=== PATIENT | female | born 2000 | race Caucasian/White ===

== ENCOUNTER 2025-06-11 15:36 | Emergency (ER) | payer OTHER, SELFPAY ==
--- NOTE | ~2025-06-11 | CT_ITS ---
CLINICAL HISTORY: Abdominal Pain CT abdomen and pelvis with contrast Comparison: None provided Findings: The lung bases are clear. The gallbladder and solid organs are within normal limits. No renal stones. No bowel obstruction, pneumoperitoneum, or pneumatosis. Mesenteric vessels are patent. Appendix not identified. Uterus and ovaries unremarkable. The bones are intact. IMPRESSION: No acute findings. This document has been electronically signed by: Arias Peace MD on 06/11/2025 21:30:30
[2025-06-11 16:06] VITALS: BP 110/71; PULSE 92; RESP 18; TEMP 36.7; O2SAT 98; BMI 22.7
--- NOTE | 2025-06-11 16:08 | ECG_ITS ---
Test Reason : ABD PAIN Blood Pressure : */* mmHG Vent. Rate : 98 BPM Atrial Rate : 98 BPM P-R Int : 142 ms QRS Dur : 72 ms QT Int : 358 ms P-R-T Axes : 84 88 -9 degrees QTcB Int : 457 ms Normal sinus rhythm Abnormal QRS-T angle, consider primary T wave abnormality Abnormal ECG No previous ECGs available Referred By: Luis Finley Electronically Signed By: EKTA WAGNER MD
--- NOTE | 2025-06-11 16:15 | ED_ITS ---
HPI - General Adult General Chief complaint: Abdominal Pain Stated complaint: abd pain Time Seen by Provider: 06/11/25 18:16 History of Present Illness ED Provider: Mindi Cobb NP HPI narrative: 24-year-old female medical history significant for type 1 diabetes, mood disorder, presents to the ED for evaluation reporting generalized abdominal pain ongoing for 1-1/2 weeks. Patient reports that the pain can be worse after eating, her boyfriend reports the pain appears to be more severe in the right upper quadrant. She reports the pain is constant 24/7, though has waves of pain. The waves of pain or with associated nausea, without vomiting. No diarrhea, though she reports some constipation. She has use MiraLax [id number] as well as stool softeners without much relief. She denies any fever, chills subjectively. No chest pain or pressure, shortness of breath. Does endorse abnormal vaginal spotting, but reports that she has inner-arm control (left) which occasionally causes this spotting. However the spotting has been more prolonged. Denies chance of . Denies any abnormal vaginal discharge. No dysuria, hematuria, urgency or frequency. No flank pain. Reports occasionally the pain in the abdomen radiates to the right back. Related Data Previous Rx's ?Medication ?Instructions ?Recorded capsaicin 0.025 % topical cream 1 appl topical BID 7 d ays #120 06/11/25 grams ondansetron 4 mg disintegrating 4 mg PO Q8H PRN nausea and 06/11/25 tablet vomiting #14 tabs Allergies Allergy/AdvReac Type Severity Reaction Status Date / Time No Known Allergies Allergy Verified 06/11/25 16:09 Review of Systems 2 Review of Systems: ROS is otherwise negative unless mentioned in HPI. [facility] Social History Social History Alcohol intake: never Physical Exam ED Exam Exam: Nursing notes and vital signs reviewed. Constitutional: Well-appearing, NAD. Alert. Oriented X3. Eyes: EOMI. ENT: Pharynx normal. Neck: Normal inspection. Neck supple. CVS: Normal heart rate and rhythm. Pulses normal. Respiratory: No respiratory distress. Breath sounds normal. Abdomen: Soft and nontender, nondistended. +Bsx4. No CVA tenderness bilaterally. Skin: Skin warm and dry. Normal skin color. Extremities: No lower extremity edema. Neuro: Oriented X 3. No motor deficit. Vital Signs: Vital Signs - 24 hr 06/11/25 16:06 06/11/25 19:02 Temperature 98.1 F 98.1 F Pulse Rate 92 79 Respiratory Rate 18 16 Blood Pressure 110/71 107/70 Pulse Oximetry 98 Oxygen Delivery Method Room Air Room Air Oxygen Flow Rate 99 BMI result Body Mass Index 22.7 Course Course Course Narrative: REINALDO; 24 year female presents to ED for abdominal pain generalized with nausea vomiting. Patient describes pain that is quite hot. Labs ordered. Medications Administered Discontinued Medications Generic Name Dose Route Start Last Admin Trade Name Freq PRN Reason Stop Dose Admin Sodium Chloride 1,000 mls @ 999 mls/hr 06/11/25 18:28 06/11/25 19:57 Ns IV 06/11/25 19:28 Infused .Q1H1M ONE Infusion Iohexol 100 ml 06/11/25 20:44 06/11/25 20:47 Iohexol 350 Mg/Ml 100 Ml Infus..Btl IV 06/11/25 20:45 85 ml ONCE ONE Administration Ketorolac Tromethamine 15 mg 06/11/25 19:36 06/11/25 19:57 Ketorolac Tromethamine 15 Mg/Ml Vial IVPUSH 06/11/25 19:37 15 mg ONCE ONE Administration Ondansetron HCl 4 mg 06/11/25 18:28 06/11/25 18:47 Ondansetron Hcl 4 Mg/2 Ml Vial IVPUSH 06/11/25 18:29 4 mg ONCE ONE Administration Medical Decision Making Medical Decision Making [facility] Narrative: 6:30 PM 06/11/2025 (Mindi Cobb NP): Upon my assessment, she does overall appear well. She answers questions appropriately. Her boyfriend is at bedside, and further reports that she has been experiencing right upper quadrant abdominal pain with intermittent radiation to the right back, worse after meals ongoing for about 1 week. She denies any urinary complaints, and reports that she has had several UTIs in the past, which led to the diagnosis of her diabetes type 1. She has had controlled sugars at home. No fever or chills. Some intermittent vaginal spotting, reports this is more prolonged comparison to baseline given her Nexplanon; Reports bleeding can be worse in times of stress. Upon review of her lab work, her LFTs, lipase, bilirubin are normal. She has no leukocytosis. Overall very reassuring. We will add on serology for COVID, flu, RSV, as well as urinalysis and urine prior to proceeding with CT imaging of the abdomen/pelvis. Will plan to administer Toradol injection after negative hCG, and currently administer fluid bolus, antiemetic. 11:30 PM -- the patient's lab work was overall reassuring. Negative viral panel. Urinalysis showed that she was spilling glucose, without evidence of DKA. CT scan shows no acute intra-abdominal or intrapelvic abnormalities. She was given antiemetic, Toradol, and a fluid bolus with good effect. She reported improvement after these medications, though upon eating in the ED reported recurrent pain. I do believe part of the pain may be due to underlying hunger, as she has not had much to eat today. I have recommended that she use Tylenol, ibuprofen for pain, and follow up with Gastroenterology outpatient, whom I have listed on her paperwork for her convenience. She does report a history of cyclical vomiting syndrome, and therefore I have prescribed her capsaicin cream that can be used topically for the abdominal pain. I have provided return precautions to the ED, she is agreeable to plan of care. Differential Diagnosis Differential Diagnoses: The differential diagnosis associated with the presentation includes Cystitis, pyelonephritis, viral pathology, constipation, cholecystitis, cholelithiasis Admission/Observation Consideration of admission/observation: Escalation of care including admission/observation considered (Not indicated) Lab Data MDM Lab Attestation statement: I reviewed the patient's lab results. (Overall reassuring) 06/11/25 16:27 06/11/25 16:27 Labs: Lab Results 06/11/25 06/11/25 06/11/25 Range/Units 16:27 19:10 21:51 WBC 9.3 (4.8-10.8) X10*3/uL RBC 4.50 (4.20-5.50) X10*6/uL Hgb 13.1 (12.0-16.0) g/dl Hct 37.6 (37.0-47.0) % MCV 83.6 (80.0-98.0) fL MCH 29.1 (27.0-33.0) pg MCHC 34.8 (31.0-35.0) g/dl RDW 11.9 (11.0-16.0) % Plt Count 182 (160-400) X10*3/uL MPV 8.9 L (9.4-12.3) fL Immature Gran % (Auto) 0.3 (0.0-0.4) % Neut % (Auto) 76.5 H (45-73) % Lymph % (Auto) 12.8 L (20-40) % [place] % (Auto) 5.6 (2-11) % Eos % (Auto) 4.1 H (0-4) % Baso % (Auto) 0.7 (0-2) % Lymph # (Auto) 1.2 (1.2-4.9) X10*3/uL [place] # (Auto) 0.5 (0.1-1.2) X10*3/uL Eos # (Auto) 0.4 (0.0-0.4) X10*3/uL Baso # (Auto) 0.1 (0.0-0.2) X10*3/uL Abs Immat Gran (auto) 0.03 (0.00-0.03) X10*3/uL Absolute Neuts (auto) 7.1 (2.0-8.3) x10*3/uL Absolute Nucleated RBC 0.000 (0.0-0.012) X10*3/uL Nucleated RBC % (auto) 0.0 (0.0-0.2) /100WBC PT 12.8 (11.2-13.5) SEC INR 1.0 (0.9-1.1) APTT 32.0 (26.7-34.1) SEC Sodium 138 (135-145) mmol/L Potassium 3.6 (3.3-5.1) mmol/L Chloride 105 (96-108) mmol/L Carbon Dioxide 26 (22-29) mmol/L Anion Gap 11 L (12-20) BUN 9 (9-16) mg/dL Creatinine 0.78 (0.5-1.4) mg/dL Estim Creat Clear Calc 96.0 Estimated GFR > 60 Random Glucose 194 H (60-115) mg/dL Calcium 9.0 (8.4-10.2) mg/dL Total Bilirubin 0.7 (0.0-1.0) mg/dL AST 21 (5-31) U/L ALT 17 (0-31) U/L Alkaline Phosphatase 57 (39-117) U/L Troponin I High Sens < 2.7 (<3.5-17.0) ng/L Total Protein 6.9 (6.5-8.0) g/dL Albumin 4.7 (3.5-5.0) g/dL Lipase 17 (8-78) U/L Beta-Hydroxybutyrate 0.32 H (0.02-0.27) mmol/L Beta HCG, Quant < 2 mIU/mL Urine Color Yellow Urine Appearance Cloudy Urine pH 6.5 (5.0-9.0) Ur Specific [place] 1.015 (1.005-1.025) Urine Protein Negative (Neg-Trace) mg/dL Urine Glucose (UA) >=1000 H (Negative) mg/dL Urine Ketones Negative (Negative) mg/dL Urine Blood Small (1+) H (Negative) Urine Nitrite Negative (Negative) Ur Leukocyte Esterase Negative (Negative) Urine RBC 0-2 (0-2) /HPF Urine WBC 0-5 (0-5) /HPF Ur Squamous Epith Cells 0-2 (0-2) /HPF Urine Bacteria None Seen (None Seen) Hyaline Casts 0-2 (0-2) /LPF Urine Test NEGATIVE (NEGATIVE) Influenza Type A (PCR) NEGATIVE (Negative) Influenza Type B (PCR) NEGATIVE (Negative) RSV RNA Qual (PCR) NEGATIVE (Negative) SARS-CoV-2 RNA (RT-PCR) NEGATIVE (Negative) Independent Interpretation I performed an independent interpretation of an: EKG Interpretation: Rate: 98 Rhythm: NSR Johnston: 84/88/-9 Normal P waves. Normal ZOIE. Normal QRS complex. ST T wave : no dep, elevation qTC: 457 prior studies: none available The study has been interpreted contemporaneously by me. Radiology Impression Discussion of test interpretation with radiology: I have reviewed the radiologist's reading. Radiologist Impression: CT Abdomen/Pelvis W: IMPRESSION: No acute findings. Independent Historian Clinical information obtained from an independent historian. History obtained from or confirmed by: Spouse External Record Review External record reviewed: Office record Chronic Conditions Patient?s care impacted by: Diabetes Social Determinants Patient?s care significantly limited by Social Determinants of Health including: Problems related to primary support group Discharge Plan Discharge Clinical Impression: Abdominal pain Patient Disposition: Home, Self-Care Instructions: Abdominal Pain (ED) Additional Instructions: As we discussed, the CT scan here shows no acute abnormality in the abdomen or pelvis. Your lab work was overall reassuring. Your urine sample showed that you were spilling some glucose, but there was no evidence of additional abnormalities. You were negative for COVID, flu, RSV. Please follow up with Gastroenterology. Please follow up with your primary care provider within 1 week. With any worsening complaints at any time, seek re-evaluation in the ED. Prescriptions: New capsaicin 0.025 % cream 1 appl topical BID 7 Days Qty: 120 0RF Rx Instructions: do not wash area for at least 30 min after application ondansetron 4 mg tablet,disintegrating 4 mg PO Q8H PRN (Reason: nausea and vomiting) Qty: 14 0RF Referrals: [facility] [place] [facility] [Provider Group, Gastroenterology] Stand Alone Forms: Work/School Release Interventions: ED Discharge Assessment Last Done: 06/12/25 00:00 Discharge Date/Time: 06/12/25 00:01 Print Language: Greenlandic
[2025-06-11 16:32] LABS: MANUAL DIFF FLAG NO
[2025-06-11 16:40] LABS: INTERNATIONAL NORM RATIO 1.0 (0.9-1.1); Prothrombin Time 12.8 SEC (11.2-13.5)
[2025-06-11 16:43] LABS: Partial Thromboplastin Time 32.0 SEC (26.7-34.1)
[2025-06-11 16:44] LABS: Hematocrit 37.6 % (37.0-47.0); Hemoglobin 13.1 g/dl (12.0-16.0); Imm Gran Abs Auto 0.03 X10*3/uL (0.00-0.03); Imm Gran Pct Auto 0.3 % (0.0-0.4); Lymphocytes Absolute Auto 1.2 X10*3/uL (1.2-4.9); Mean Corpuscular HGB Conc 34.8 g/dl (31.0-35.0); Mean Corpuscular Hemoglobin 29.1 pg (27.0-33.0); Mean Corpuscular Volume 83.6 fL (80.0-98.0); NRBC Abs Auto 0.000 X10*3/uL (0.0-0.012); NRBC Pct Auto 0.0 /100WBC (0.0-0.2); Platelet Count 182 X10*3/uL (160-400); Red Blood Count 4.50 X10*6/uL (4.20-5.50); White Blood Count 9.3 X10*3/uL (4.8-10.8)
[2025-06-11 16:49] LABS: Alanine Aminotransferase 17 U/L (0-31); Albumin Level 4.7 g/dL (3.5-5.0); Alkaline Phosphatase 57 U/L (39-117); Anion Gap 11 (12-20); Aspartate Amino Transferase 21 U/L (5-31); Blood Urea Nitrogen 9 mg/dL (9-16); Calcium 9.0 mg/dL (8.4-10.2); Carbon Dioxide 26 mmol/L (22-29); Chloride 105 mmol/L (96-108); Creatinine Clr Calc Pharmacy 96.0; Estimated Glomerular Filt Rate > 60; Lipase 17 U/L (8-78); Potassium 3.6 mmol/L (3.3-5.1); Sodium 138 mmol/L (135-145); Total Protein 6.9 g/dL (6.5-8.0)
[2025-06-11 16:55] LABS: Troponin-I High Sensitivity < 2.7 ng/L (<3.5-17.0)
--- NOTE | 2025-06-11 18:44 | PC.NURSE ---
Patient presents to ED with nausea and abdominal pain that has been ongoing for 2 weeks. Patient denies any vomiting. States last bowel movement was yesterday. States she feels like she needs to have BM. IV in left FA.
[2025-06-11 19:02] VITALS: BP 107/70; PULSE 79; RESP 16; TEMP 36.7
[2025-06-11 19:25] LABS: UPreg QC Valid YES
[2025-06-11 19:53] LABS: Resp Syncy Virus RNA Qual PCR NEGATIVE (Negative); SARS COV2 PCR INHOUSE NEGATIVE (Negative)
[2025-06-11] MEDS: iohexoL 350 MG/ML 100 ML INFUS..BTL IV (20:47)
[2025-06-11 21:59] LABS: Appearance Urine Cloudy; Glucose Urine UA >=1000 mg/dL (Negative); PH 6.5 (5.0-9.0); Specific Gravity - Urine 1.015 (1.005-1.025); UMIC TRIGGER UACC YES
[2025-06-12] VITALS: BP 107/70; PULSE 79; RESP 16; TEMP 36.7
--- OUTSIDE RECORDS SUMMARY | 2025-06-12 02:25 | XMS_ITS | Clinical Summary ---
Author Organization [facility] Address [address] [place] [address] Care Team Providers Care Toll Testboard Worker Name Role Phone Steve Bravo MD Primary Care Provider [phone] Allergies Active Allergy Reactions Criticality Noted Date Comments Poison Drea Extract Unknown 03/20/2021 Severity: Unknown Medications buPROPion (WELLBUTRIN XL) 150 MG 24 hr tablet take 1 Tablet by oral route every morning 12/22/2021 Active Family History Medical History Relation Comments Alcohol abuse Father Legacy Problem N megan: alcoholism; Cause of ?: N Depression Father Cause of ?: N Hyperlipidemia Father Legacy Problem N megan: raised blood lipids; Cause of ?: N Hypertension Father Cause of ?: N anxiety state Father Cause of ?: N high lipids Father Cause of ?: N Alcohol abuse Maternal Grandfather Legacy Prob angelina Name: alcoholism; Cause of ?: N Hypertension Maternal Grandfather Cause of De ath?: N lung abscess Maternal Grandfather Cause of De ath?: Y rheumatoid arthritis Maternal Grandfather Cause of ?: N Fibromyalgia Maternal Grandmother Cause of De ath?: N Hypertension Maternal Grandmother Cause of De ath?: N Alive and well Mother Cause of ?: N Colon polyps Mother Cause of ?: N gastraparesis Mother Cause of ?: N Cardiovascular disease Paternal Grandfather Caus e of ?: N Alive and well Sister 1 Cause of ?: N Anxiety disorder Sister 2 Legacy Problem Name: Anxiety; Cause of ?: N Relation Status Comments Father Maternal Grandfather Maternal Grandmother Mother Alive Paternal Grandfather Sister 1 Alive Sister 2 Social History Tobacco Use Types Packs/Day Years Used Date Smoking Tobacco: Never Alcohol Use Standard Drinks/Week Comments Yes 0 (1 standard drink = 0.6 oz pur e alcohol) Comments Unknown Sex and Gender Information Value Date Recorded Sex Assigned at Female 01/19/2025 6:52 PM EDT Legal Sex Female 6:52 PM EDT Gender Identity Not on file Sexual Orientation Not on file Last Filed Vital Signs Vital Sign Reading Time Taken Comments Blood Pressure 112/74 07/27/2023 3:12 PM EST Body position: sitting Cuff size: Adult Target site: left brachial Pulse - - Temperature - - Respiratory Rate - - Oxygen Saturation - - Inhaled Oxygen Concentration - - Weight 63.1 kg (139 lb 3.2 oz) 07/27/2023 3:12 PM EST WeightContext: dressed without shoes Height 165.1 cm (5' 5 ) 07/27/2023 3:12 PM EST HeightMethod: measured HeightBodyPosition: Standing Body Mass Index 23.16 07/27/2023 3:12 PM EST Plan of Treatment Health Maintenance Due Date Last Done Comments Depression Screening 2012 Chlamydia and Gonorrhea Screening 12/28/2015 Hepatitis C Screening 2018 Cervical Cancer Screening 2021 Pap Smear 2021 DTaP,Tdap,and Td Vaccines (7 - Td or Tdap) 01/10/2022 01/11/2012, 01/06/2005, 03/29/2002, Additional history exists COVID-19 Vaccine (2024- season) 2025 Influenza Vaccine (#1) 2025 2, 03/18/2020, 04/27/2017, Additional history exists Blood Pressure 07/27/2027 07/27/2023 Pneumococcal Vaccine Aged Out 10/11/2001, 07/12/2001, 02/09/2001 No longer eligible based on patient's age to complete this topic Meningococcal Vaccines Completed 10/08/2017, 2011 Meningococcal B Vaccines Completed 03/18/2020, 09/2018 Care Teams Toll Testboard Worker Relationship Specialty Start Date End Date Steve Bravo MD [address] [facility] [address] [place] [address] [facility] - General 07/13/22
--- OUTSIDE RECORDS SUMMARY | 2025-06-12 02:25 | XMS_ITS | Encounter Summary ---
Author Organization [facility] Address [address] [place] [address] [place] [id number] Phone Care Team Providers Care Press Hand Name Role Phone Gilson Pabon MD Primary Care Provider [phone] Reason for Visit * Reason Onset Date Comments Blood Glucose 03/26/2025 Encounter Details Date Type Department Care Team (Late st Contact Info) Description 03/26/2025 Telephone [facility] Endo and Diabetes Consult [address] [address] Javan Pimentel LPN [address] [place] [address] Blood Glucose Social History Tobacco Use Types Packs/Day Years Used Date Smoking Tobacco: Never Smokeless Tobacco: Current Comments:Vape Alcohol Use Standard Drinks/Week Comments Not Currently 0 (1 standard drink = 0.6 oz pur e alcohol) 3 months Education Answer Date Recorded Are you interested in more education? Not on jeni e 03/04/2023 Are you concerned about learning? Not on file 03/04/2023 No 03/04/2023 No 03/04/2023 Digital Access Answer Date Recorded No 03/04/2023 No 03/04/2023 Reliable internet access at home? Not on file 03/04/2023 Device with a working camera? Not on file Intimate Partner Violence Answer Date R ecorded Are you denied basic needs s uch as food, clothing, or medical care? No 03/01/2024 In the past 12 months have y ou been in a relationship with a person who hurts, threatens, or tries to control you? No 03/01/2024 Are you denied basic needs s uch as food, clothing, or medical care? No 03/01/2024 In the past 12 months have y ou been in a relationship with a person who hurts, threatens, or tries to control you? No 03/01/2024 Education Answer Date Recorded What is the highest level of school you have completed or the highest degree you have received? High school graduate 09/07/2024 Comments No Sex and Gender Information Value Date Recorded Sex Assigned at Female 03/09/2023 2:27 PM EDT Legal Sex Female 5:04 PM EDT Gender Identity Female 03/09/2023 2:27 PM EDT Sexual Orientation Bisexual 03/09/2023 2: 27 PM EDT documented as of this encounter Progress Notes * Angelika Soto RD - 03/26/2025 5:25 PM EDT Spoke to pt, aware tony 3 + ordered. Discussed with pt to call us when setting up if needed, will have to start new sensor at time of restarting pump. Will call on Wednesday to see her status and toask her to call us once she has restarted pump . * Monica Daniels MD - 03/26/2025 2:04 PM EDT Beta bionic pump reviewed: Which shows TIR: 83%, lows: 0.7+0.1% Pt been off pump since Sat 8pm. Noted that pt started taking MDI since wednesday and her BG been fairly controlled. Agree with using MDI for now. Please swetha up tony 3+ and once she gets it can use it with Beta bionic pump. We ca review her pump data when back on for 24-48hr. * Angelika Soto RD - 03/26/2025 11:01 AM EDT Images from the original note were not included. Tony/beta report in media Pt does not want to stay on beta, is now off has MDI Wants to switch cgm from dexcom to Tony 3 + - is also interested in staying on Beta with the libre3 + , dexcom is her biggest frustration as she feels the glucose readings that dexcom is sending topump is incorrect. * Javan Pimentel LPN - 03/26/2025 10:56 AM EDT Patient reporting she has been taking 8 units of Lantus nightly. Provider please advise. Linda Hudson to [facility] Endo Ex9 Nurse Triage 03/26/25 10:06 AM Oops.. I forgot my baisl changed from 8 to 13 I will change that. I just tried to return the call Igot from the office. I left a voicemail * Adela Aguilar, TITO - 03/26/2025 10:50 AM EDT VM from pt stating she is calling back about her pump and dexcom. Call to pt. Pt states she is in a store, and asked if she can c/b. Nursing assured pt this is ok, and will await c/b. * Javan Pimentel LPN - 03/26/2025 9:43 AM EDT [place] message received from patient. Dexcom/ Beta Bionic Reports uploaded to chart. FYI to CDE's / Provider: Patient discontinued pump due to inaccurate CGM readings and fear of going too low. Attempted to call patient to confirm insulin plan - gateway message sent. Provider please advise. Pump and cgm issues Linda Hudson to [facility] Ex[facility] Nurse Triage 03/24/25 10:58 PM I???m am messaging you this late at night even though you are not in the office because in the last24 hours I have had 3 different dexcoms giving horrifically inaccurate readings and causing me to get insulin that I should not be getting due to the automatic dosing of the bionic pump, I got 4 hours of sleep last night due to this and the fear of becoming comatose in my sleep. It has made my mental health completely plummet which is even worse because it puts my sobriety at risk. I need to change back to the freestyle tony 3 and a different pump that won???t have the possibility of accidentally Unaliving me in my sleep, and or be put in touch with someone about a service dog. When possibleid like to talk about my options. I currently took off my pump and did a manual injection of 24 hours insulin. Thank you for all the help you have given me through this horrible journey, I really appreciate everything you???ve done and I???m glad I have you on my diabetic team. Hope to hear from you soon Basal insulin brand: Lantus Before breakfast Before lunch Before dinner At hour of sleep Units 13 Prandial insulin brand: Humalog Before breakfast Before lunch Before dinner Before evening snack 5 6 6 1 unit per 20 grams of carbohydrates 1 unit per 100 point glucose change 1 unit per 100 point glucose change 1 unit per 100 point glucose change 1 unit per 100 point glucose change Target mfngige=178 mg/dL Keep humalog correction doses at least 5 hours apart May use carbohydrate ratio 1:18-1:20 at meals documented in this encounter Plan of Treatment Upcoming Encounters Date Type Department Care Team (Late st Contact Info) Description 07/24/2025 1:15 PM EST Office Visit [facility] Diabetes Consult [address] [address] Gladys Butcher MD [address] [phone] 09/11/2025 8:30 AM EDT Office Visit [facility] Internal Medicine 10 Members [facility] [address] [place] [address] Gilson Pabon MD [address] [address] [email or web address] 09/14/2025 9:45 AM EDT Nutrition [facility] Endo and Diabetes Consult 10 Members [facility] [address] [place] [address] Gladys Butcher MD 10 Members [facility] [address] [place] [id number] [email or web address] Kamryn Chew RN [address] [place] [address] [email or web address] documented as of this encounter Goals Goal Patient Goal Type Associated Problems Recent Progress Patient-Stated? Author Manage Diabetes Supplies, Medications, and Equipment General On track( 025 2:32 PM EST) Kamryn Mclaughlin, RN Note: Carry and keep glucose tablets in many places 4 glucose tablets for lows now --when on insulin pump 1-3 glucose tablets may be appropriate due to how the pump can decrease and stop insulin delivery documented as of this encounter Visit Diagnoses Not on filedocumented in this encounter Additional Health Concerns Assessment Noted Time PHQ-9 Depression Total Score: 13 025 9:08 AM EST PHQ-2 Depression Total Score: 3 09/08/19 25 9:08 AM EST documented as of this encounter Care Teams Press Hand Relationship Specialty Start Date End Date Gislon Pabon MD [address] [address] [email or web address] PCP - General Internal Medicine 09/07/24 documented as of this encounter Additional Source Comments The information contained in this document represents components of the legal health record. It is not the complete legal health record.[facility]
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
--- OUTSIDE RECORDS SUMMARY | 2025-06-12 02:25 | XMS_ITS | Clinical Summary ---
Author Organization [facility] Address [address] [place] [address] Phone Care Team Providers Care Tax Map Technician Name Role Phone Gilson Pabon MD Primary Care Provider [phone] Allergies No known active allergies Medications acetone, urine, test Strp Check ketones in the urine when blood sugars are >300 mg/dl 100 strip 11 02/21/20 24 Active glucagon (BAQSIMI) 3 mg/actuation [place] 1 spray by Nasal route once as needed (severe low blood sugar less than 70 and unable to take carbohydrates by mouth. use a second spray device if inadequate response after 15 minutes.). 2 each 02/21/20 24 Active etonogestreL (NEXPLANON) 68 mg Impl Inject 68 mg into the skin Once every 3 years. Active insulin infusion set-cartridge (ILET INFUSION-CONTACT [facility] 23 ) CmpkIndications:T ype 1 diabetes mellitus with hyperglycemia 1 each by Miscellaneous route as directed. Change infusion set and cartridge every 2 days and sooner as needed if infusion set falls off or fails 50 each 3 04/26/20 24 Active ILET INSULIN PUMP Misc USE as directed TO infuse insulin 04/28/20 24 Active insulin aspart, B3, pump cart (FIASP PUMPCART) 100 unit/mL (1.6 mL) CrtgIndications:T ype 1 diabetes mellitus with hyperglycemia Inject 1 each under the skin as directed. For use via ilet beta bionics insulin pump. Change cartridge every other day or sooner as needed if infusion set failure, use up to 80 units per day, requires 20 units for prime tubing 32 mL 3 09/06/19 25 Active Additional Information Patient not taking.Reported on 01/11/2025 insulin aspart U-100 (NOVOLOG U-100 INSULIN ASPART) 100 unit/mL injection vialIndications:T ype 1 diabetes mellitus with hyperglycemia Use to fill cartridges for ilet insulin pump. Requires 60 units daily includes tubing and cartridge fill. 60 mL 3 09/06/19 25 Active insulin aspart, niacinamide, (FIASP U-100 INSULIN) 100 unit/mL SolnIndications:T ype 1 diabetes mellitus with hyperglycemia Use to fill insulin pump. 40 mL 3 09/07/19 25 Active Additional Information Patient not taking.Reported on 01/11/2025 blood sugar diagnostic Strp strips 1 each by Miscellaneous route 4 (four) times a day before meals and nightly. 100 strip 1 10/02/19 25 Active FREESTYLE TONY 3 PLUS SENSOR DeviIndications:T ype 1 diabetes mellitus without complication 1 applicator by Miscellaneous route every 14 (fourteen) days. 6 each 3 03/26/20 25 Active insulin pen needles, disposable, (BD MARTI 2ND GEN PEN NEEDLE) 32 gauge x 5/32 NdleIndications:T ype 1 diabetes mellitus with hyperglycemia USE FOUR TIMES DAILY BEFORE MEALS AND NIGHTLY 400 each 3 04/20/20 25 Active insulin aspart U-100 (NOVOLOG) 100 unit/mL (3 mL) injection penIndications:Ty pe 1 diabetes mellitus with hyperglycemia Inject subcutaneously prior to meals according to insulin to carb ratio. Prime pen needle with 2 units prior to each injection. Max daily insulin requirement = 60 units. 15 mL 11 04/17/20 25 Active insulin glargine 100 unit/mL (3 mL) InPn injection penIndications:Di abetes mellitus, new onset Inject 7 Units under the skin nightly at bedtime. Inject 7 units under skin daily. Prime with 2 units prior to each use. Max total daily requirement 9 units. 04/19/20 25 Active subcutaneous insulin pump MiscIndications:T ype 1 diabetes mellitus with hyperglycemia Tandem t:slim x2 insulin pump 1 each 04/19/20 Active insulin pump cartridge CrtgIndications:T ype 1 diabetes mellitus with hyperglycemia For use with Tandem t:slim x2 insulin pump 30 each 3 04/19/20 Active insulin infusion set-cartridge (TANDE[employer] XC KT 23 ) CmpkIndications:T ype 1 diabetes mellitus with hyperglycemia 1 each by Miscellaneous route every 3 (three) days. For use with Tandem X2 insulin pump 30 each 04/19/20 Active blood-glucose sensor (FREESTYLE TONY 2 PLUS SENSOR) DeviIndications:T ype 1 diabetes mellitus with hyperglycemia 1 each by Miscellaneous route every 15 (fifteen) days. Use as directed 2 each 04/19/20 Active Additional Information Patient not taking.Reported on 05/15/2025 Hospital, Clinic, or Other Facility Administered Medication Ordered Dose Route Frequency Start Date End Date Status etonogestreL (NEXPLANON) subdermal implant 68 mg 68 mg IDrm Every 3 years 03/10/2023 Active Active Problems Problem Noted Date Diagnosed Date Healthcare maintenance 09/07/2024 Anxiety and depression 09/07/2024 Overview (09/07/2024): Pt was referred to [facility] by PCP Dr. Pabon to address anxiety and depression Pt reports a hx of anxiety, depression, ADHD and trauma Pt endorses of past MH treatment including outpatient therapy, inpatient mental health, outpatient [facility] treatment and inpatient [facility] treatment Pt endorses a hx of KEELEY, 6 months sober from ETOH Assessment & Plan (11/23/2024 2:41 PM EDT): Symptoms up and down Self Harm Acute risk: low Chronic: low Pt engagement in developing and implementing therapy interventions is good Progress toward treatment plan goals is good Pt in implementation phase of treatment Linda discussed she is going through several changes and transitions which is causing an increase in anxiety Discussed ways to plan for transitions Plan: Linda to review information this clinical writer shared via the portal prior to next session Status of referrals: Provided Follow up: two weeks Assessment & Plan (11/08/2024 3:43 PM EDT): Symptoms improving Self Harm Acute risk: low Chronic: low Pt engagement in developing and implementing therapy interventions is good Progress toward treatment plan goals is good Pt in implementation phase of treatment Linda has implemented the plan from the last session of having some stuffed animals be collectors and others she will use Reports that that has been helpful Discussed an upcoming change in her life and assisted her in processing this Plan: Continue to utilize coping skills discussed Status of referrals: Provided Follow up: two weeks Assessment & Plan (10/20/2024 11:17 AM EDT): Symptoms up and down Self Harm Acute risk: low Chronic: low Pt engagement in developing and implementing therapy interventions is good Progress toward treatment plan goals is good Pt in intervention development phase of treatment Linda notes that she is experiencing increasing anxiety/potential OCD symptoms as her sobriety time increases Provided additional psycho Ed on OCD. Assisted patient in identifying values and discussed CBT skills as a way to approach current concerns Plan: Leticia will choose a handful of stuffed animals that she is going to allow herself to utilize and reframe thoughts as discussed in session Status of referrals: Provided, patient has outreached [facility] Follow up: two weeks Assessment & Plan (10/05/2024 6:06 PM EDT): Symptoms gradually improving and up and down Self Harm Acute risk: low Chronic: low Pt engagement in developing and implementing therapy interventions is good Progress toward treatment plan goals is good Pt in intervention development phase of treatment Linda reports she did not complete the TEAMS worksheet She did pay attention to the emotions and sensations Plan: Status of referrals: provided Follow up: two weeks Assessment & Plan (09/25/2024 12:36 PM EDT): Symptoms unchanged Self Harm Acute risk: low Chronic: low Pt engagement in developing and implementing therapy interventions is good Pt in intervention development phase of treatment Linda identifies that she would like to reduce picking skin / pulling her eye lashes / hair Provided psychoed on OCD as pt may have symptoms of OCD Provided TEAMS work sheet Plan: Pt will observe TEAMS at least 3 times before next session Status of referrals: provided Follow up: two weeks Assessment & Plan (09/11/2024 9:39 AM EDT): Symptoms consistent with Generalized Anxiety Disorder Reviewed IB scope Pt will start with [facility] services while simultaneously working on a referral for ongoing outpatient therapy Provided psychoeducation on best practices for treatment: CBT, motivational enhancement, therapeutic lifestyle modification, and harm reduction Follow up visit scheduled in two weeks Assessment & Plan (09/07/2024 9:37 AM EST): Patient reports having chronic anxiety since age of 8. Was on bupropion and buspirone, stopped both of them due to anger outbursts. Currently not on any medications Will introduced to [facility], will see if psychotherapy sessions alone will help patient. If not-will start SSRI or SNRIs History of alcohol use disorder 09/07/2024 Assessment & Plan (09/07/2024 9:37 AM EST): Patient is recovering alcoholic, sober for 6 months Will continue dynamic monitoring and provide psychological support as needed. Will introduce to [facility] Type 1 diabetes mellitus with hyperglycemia 08/2023 Assessment & Plan (09/07/2024 9:39 AM EST): Follows up with wafer production worker, next appointment October 03 Urine microalbumin done A1c today 5.9 Assessment & Plan (04/06/2024 5:16 PM EDT): Linda is a 23 y.o. female with Diabetes type: type 1 diabetes mellitus diagnosed in 2023. Diabetes is accompanied by / complicated by:ADHD and alcohol use disorder in early remission AVOIDING: N/A Current diabetic control: Hgba1c 7.7% 01/24/2024 BG 142 Target hgba1c 7.0% Interval assessment summary: ~Back at her own home with boyfriend after alcohol use disorder detox and IOP. More attentive to healthier, more consistent meals ~Fairly good glycemic control with evening spikes likely related to snacks ~Currently has low insulin requirements Plan: ~Reach out to PCP practice where a new patient appointment is scheduled in 09/2024 to inquire about primary care coverage in the interim ~Continue working program for ongoing sobriety ~Continue same insulin plan with additional coverage for a evening snack *Medication recommendations: Insulin plan: Basal insulin brand: Lantus Before breakfast Before lunch Before dinner At hour of sleep Units 5 Prandial insulin brand: Humalog Before breakfast Before lunch Before dinner Evening snack 1 unit per 30 grams of carbohydrates 1 unit per 30 grams of carbohydrates 1 unit per 30 grams of carbohydrates 1 unit per 30 grams of carbohydrates *Don't take additional Humalog within 3 hours of a previous dose *Continue to monitor Tony data. Report blood sugars if you have hypoglycemia or persistent hyperglycemia. Nurse line for calling in blood sugars / to pull data: [phone] *Diet Rx: Try to eat consistent amounts of carbs from day to day to minimize fluctuations in blood sugars. Limit carbs to 45 grams per meal to prevent post- meal hyperglycemia *Hypoglycemic correction discussed for BG <70: ~Consume 15 grams of carbohydrates (ie: 4 glucose tablets, 1 packet of glucose gel, 4 ounces of orange or apple juice) ~Wait 15 minutes ~Check your blood sugar ~If your blood sugar is still below 70 mg/dL, repeat steps 1-3 ~Continue repeating until your blood sugar is within your target range ~After treating your low blood sugar, eat a balanced snack or meal with protein and carbohydrates ~If your blood sugar is less than 50, treat with 30 grams of carbohydrates (which is two of the above) ~Has Baqsimi nasal spray ~Has ketone sticks *Exercise Rx: 30 minutes of cardiovascular activity 5x a week with resistance training 2-3x a week as tolerated. Medical attention should be sought for any acute exercise induced cardiopulmonary symptoms *Foot checks at least daily. Continue supportive foot wear and avoid going barefoot *Recommend annual diabetic retinal exams; will schedule initial exam *Annual Urine microalbumin: order entered *Follow up on 05/29/[address] Luu *Interested in pump therapy and will look into the different types of pumps and determine which are covered by her insurance. Will need DM education prior to considering pump therapy *Schedule visit with nurse informatics educator and dietitian *She previously inquired about diabetes support dogs. Advised she likely doesn't qualify as she does not have hypoglycemia unawareness Assessment & Plan (02/04/2024 11:39 AM EDT): Pt here today to establish care with office. Seen at [facility] ED 01/23 for UTI symptoms. UA showed excessive glucose in urine. A1C- 7.7% CBC, CMP, TSH unremarkable UA positive for UTI- treated with keflex She has not seen a PCP in >5 years. Followed by [facility] for control (nexplanon) and paps. She reports 5+ years of fatigue, dizziness. Wt stable, vision stable. External labs show an elevated IA-2 antibody, elevated prosinsulin. Uncle with DM otherwise no other family hx of DM Mother- RA, father- scleritis, PGM- RA Referral to endo and certified adapted physical educator given Start on lantus 5 units. Will continue to check sugar TID and give me an update via portal every 3 days- will adjust lantus accordinly until she establishes with endo Encounters Date Type Department Care Team Description 05/16/2025 2:30 PM EST Telemedicine - audio only [facility] Endo [facility] Diabetes Consult [address] [place] [address] Gladys Butcher MD Noury, Bonnie L, RN Type 1 diabetes mellitus with hyperglycemia (Primary Dx) 05/16/2025 Telephone [facility] Endo and Diabetes Consult [address] [place] [address] Aliyn Roberts MD diabetes-telephone visit 05/15/2025 Telephone [facility] [address] [address] Marissa Mackenzie MA Appointment 05/15/2025 Telephone [facility] [address] [address] Marissa Mackenzie MA insulin plan 05/14/2025 Orders Only [facility] [address] [place] [phone] Zuhair Thomas MD 05/10/2025 Telephone [facility] [address] [place] [phone] Ailyn Roberts MD blood glucose data 05/09/2025 8:45 AM EST Nutrition [facility] [address] [place] [address] Gladys Butcher MD Noury, Bonnie L, RN Type 1 diabetes mellitus with hyperglycemia (Primary Dx) 05/09/2025 Telephone [facility] Diabetes [facility] [address] [address] Ailyn Roberts MD cde visit 05/08/2025 Telephone [facility] [address] [address] Kamryn Chew RN insulin pump start orders 05/08/2025 Telephone [facility] Diabetes Consult [address] [address] Domonique Morton [facility] Precharting 05/04/2025 Telephone [facility] Diabetes [facility] [address] [address] Kamryn Chew RN prepump training phone call 04/26/2025 Telephone [facility] [address] [address] Linda Rangel, KIRK Appointment 04/20/2025 Telephone [facility] [address] [address] Adriano Pedroza MA Medication Management 04/19/2025 9:00 AM EDT Nutrition [facility] [address] [address] Linda Rangel, KIRK Type 1 diabetes mellitus with hyperglycemia (Primary Dx) 04/19/2025 Refill [facility] Diabetes [facility] [address] Medication Refill 04/19/2025 Refill [facility] Consult [address] Medication Refill 04/19/2025 Telephone [facility] Diabetes Consult [address] Insulin Plan 04/19/2025 Telephone [facility] [address] [place] [address] DSMT visit 04/18/2025 Telephone [facility] Endo and Diabetes Consult [address] [place] [address] Zahra Sanchez CMA Medication Management (ILET Infusion Sets + Tony Supplies) 04/17/2025 Telephone [facility] Endo and Diabetes Consult [address] [place] [address] Javan Pimentel LPN Medication Management 04/17/2025 Telephone [facility] Endo [facility] Diabetes Consult [address] [place] [phone] Jumana Sullivan RN P-New Insulin Pump 04/16/2025 Refill [facility] [address] [place] [phone] Zuhair Thomas MD Medication Refill 04/13/2025 Telephone [facility] Endo [facility] Diabetes Consult [address] [place] [address] Javan Pimentel LPN Blood Glucose 04/04/2025 Telephone [facility] Endo and Diabetes Consult [address] [place] [address] Naomie Zambrano, GREASE REFINER OPERATOR Appointment 03/26/2025 Refill [facility] [address] [place] [phone] Monica Daniels MD 03/26/2025 Telephone [facility] Endo and Diabetes Consult [address] [place] [address] Javan Pimentel LPN Blood Glucose 03/26/2025 Orders Only [facility] Central Support [address] [place] [address] Provider, MD Cristina from Last 3 Months Immunizations Immunization Administration Dates Next Due INFLUENZA, SPLIT VIRUS, TRIVALENT PF 05/25/2024 Pneumococcal conjugate PCV20 09/07/2024 Family History Medical History Relation Comments Alcohol use disorder Father Anxiety disorder Father Scleritis Father Alcohol use disorder Maternal Grandfather Rheumatoid arthritis Maternal Grandfather Atrial fibrillation Maternal Grandmother Fibromyalgia Maternal Grandmother Hypertension Maternal Grandmother Lung disease Maternal Grandmother Pacemaker Maternal Grandmother Anxiety disorder Mother Colon polyps Mother Depression Mother Infl. arthritis Mother Rheumatoid arthritis Mother Alcohol use disorder Paternal Grandfather Alcohol use disorder Sister Anxiety disorder Sister Bipolar disorder Sister Depression Sister Post-traumatic stress disorder Sister Relation Status Comments Father Alive Maternal Grandfather Maternal Grandmother Alive Mother Alive Paternal Grandfather Paternal Grandmother Sister Alive Social History Tobacco Use Types Packs/Day Years Used Date Smoking Tobacco: Never Smokeless Tobacco: Current Tobacco Cessation:Ready to Q uit: Not Asked; Counseling Given: Not Answered Comments:Vape Alcohol Use Standard Drinks/Week Comments Not [...] Orientation Bisexual 03/09/2023 2: 27 PM EDT Last Filed Vital Signs Vital Sign Reading Time Taken Comments Blood Pressure 102/73 05/09/2025 9:54 AM EST Pulse 98 05/09/2025 9:54 AM EST Temperature 36.7 C (98 F) 09/07/2024 9:12 AM EST Respiratory Rate 16 03/01/2024 10:03 AM EDT Oxygen Saturation 99% 09/07/2024 9:12 AM EST Inhaled Oxygen Concentration - - Weight 61.2 kg (135 lb) 01/12/2025 10:08 AM EDT Height 162.6 cm (5' 4 ) 01/12/2025 10:08 AM EDT Body Mass Index 23.17 01/12/2025 10:08 AM EDT Plan of Treatment Upcoming Encounters Date Type Department Care Team (Late st Contact Info) Description 07/24/2025 1:15 PM EST Office Visit [facility] Endo and Diabetes Consult [address] [address] Gladys Butcher MD [address] [phone] [email or web address] 09/11/2025 8:30 AM EDT Office Visit [facility] Internal Medicine [address] [address] Gilson Pabon MD [address] [address] 09/14/2025 9:45 AM EDT Nutrition [facility] Endo and Diabetes Consult [address] [address] Gladys Butcher MD [address] [phone] Kamryn Chew RN [address] [place] [address] Health Maintenance Due Date Last Done Comments Adult Td,Tdap Booster 2000 HPV VACCINES (1 - 3-dose series) 12/28/2015 HEPATITIS C SCREENING 2018 HIV ONE-TIME SCREENING (18-65 YEARS) 2018 PAP SMEAR 2021 REPEAT PHQ 10/08/2024 09/07/2024, 09/07/2024 LIPID PANEL 01/26/2025 01/27/2024, 01/27/2024 INFLUENZA VACCINE (#1) 2025 05/25/2024 CHLAMYDIA SCREENING 03/01/2025 03/01/2024 COVID-19 VACCINE ( season) 2025 URINE MICROALBUMIN/CREATININE RATIO 04/06/2025 04/06/2024 DEPRESSION SCREENING 09/07/2025 09/07/2024, 09/08/19 BLOOD PRESSURE 11/06/2025 05/09/2025 HEMOGLOBIN A1C 11/06/2025 05/09/2025, 0312/2024, 04/13/2024, Additional history exists Contraceptive Implant 03/09/2026 03/09/2023 DIABETIC EYE EXAM 03/15/2026 03/15/2025, 11/05/2022 SMOKING Hx and SMOKELESS TOBACCO SCREENING 05/08/2026 05/08/2025 PNEUMOCOCCAL VACCINES (0-49 years) Completed 09/07/2024 HEPATITIS A VACCINES Aged Out No long er eligible based on patient's age to complete this topic HIB VACCINES Aged Out No longer eligi ble based on patient's age to complete this topic MENINGOCOCCAL VACCINES (ACWY) Aged Out No longer eligible based on patient's age to complete this topic MENINGOCOCCAL VACCINES (B) Aged Out N o longer eligible based on patient's age to complete this topic Goals Goal Patient Goal Type Associated Problems Recent Progress Patient-Stated? Author Manage Diabetes Supplies, Medications, and Equipment General On track( 025 2:32 PM EST) Kamryn Mclaughlin RN Note: Carry and keep glucose tablets in many places 4 glucose tablets for lows now --when on insulin pump 1-3 glucose tablets may be appropriate due to how the pump can decrease and stop insulin delivery Administer Insulin Properly General On track( 025 2:32 PM EST) Kamyrn Mclaughlin RN Note: Change infusion set and cartridge every 3 days and sooner as needed When in doubt change it out Currently fill cartridge 100 units for 3 days (and tubing fill) Medical Devices Not on file Procedures Procedure Name Priority Date/Time Associated Diagnosis Comments POCT HEMOGLOBIN A1C Routine 05/09/2025 9 :16 AM EST Type 1 diabetes mellitus with hyperglycemia DIABETES EYE EXAM FOR RESULT ENTRY ONLY Routine 03/15/2025 MICROALBUMIN/CREATIN INE RATIO, RANDOM URINE Routine 04/06/2024 4:09 PM EDT Type 1 diabetes mellitus with hyperglycemia CHLAMYDIA TRACHOMATIS AND NEISSERIA GONORRHOEAE NUCLEIC ACID DETECTION STAT 03/01/2024 8:35 AM EDT LIPID PANEL Routine 01/27/2024 from Last 3 Months or Most Recently Relevant to Health Maintenance Results * (ABNORMAL) POCT Hemoglobin A1c (Enter/Edit) (05/09/2025 9:16 AM EST) Hemoglobin A1c 5.8(A) 4.2 - 5.6 % MarginLeft 05/09/2025 9:16 AM EST Gladys Butcher MD LAB POCT ENTER/EDIT ORDERABLE S Final Result [facility] [address] [place] [address] * DIABETES EYE EXAM FOR RESULT ENTRY ONLY (03/15/2025) Impressions Erna Farrell - 03/15/2025 No Diabetic Retinopathy Cristina Provider HEALTH MAINTENANCE Edited Result - Final * (ABNORMAL) Microalbumin/creatinine ratio, random urine (04/06/2024 4:09 PM EDT) URINE MICROALBUMIN 3.2(H) 0 - 2 mg/dL [facility] URINE CREATININE 185 28 - 217 mg/dL [facility] MICROALB/CRE RATIO 17.3 0 - 30 mg/g Cre [facility] Urine (Urine) 04/06/2024 4:0 9 PM EDT 04/06/2024 4:14 PM EDT Naomie Grantbulmaro CAN LAB URINE ORDERABLES Fin al Result Performing Organization Address [facility]/ZIP Co de Phone Number [address] [phone] * Chlamydia Trachomatis and Neisseria Gonorrhoeae Nucleic Acid Detection (03/01/2024 8:35 AM EDT) CHLAMYDIA TRACHOMATIS Not Detected Not Detected [facility] NEISERIA GONORRHOEAE Not Detected Not Detected [facility] SPECIMEN TYPE STAT [facility] Other (Vaginal) 03/01/2024 8 :35 AM EDT 03/01/2024 9:14 AM EDT Arelis Ch PA-C LAB GENERAL ORDERAB LES Final Result Performing Organization Address [facility] Co de Phone Number [address] [phone] * Lipid panel (01/27/2024) HDL - External 67 Cholesterol, Total - External 190 Triglycerides - External 82 LDL, calculated - External 106 Cardiac Risk Ratio - External Non-HDL Cholesterol - External Historical Provider LAB BLOOD BKR ORDERABLES Edited Result - Final from Last 3 Months or Most Recently Relevant to Health Maintenance [place] [address] [place] [address] [employer] FAMILY Care Teams Tax Map Technician Relationship Specialty Start Date End Date Gilson Pabon MD [address] [place] [address] PCP - General Internal Medicine 09/07/24 Additional Source Comments The information contained in this document represents components of the legal health record. It is not the complete legal health record.[facility]
--- OUTSIDE RECORDS SUMMARY | 2025-06-12 02:25 | XMS_ITS | Encounter Summary ---
Author Organization [facility] Address [address] [place] [address] [place] [id number] Phone Care Team Providers Care Criminal Investigator Customs Name Role Phone Gilson Pabon MD Primary Care Provider [phone] Reason for Visit * Reason Onset Date Comments P-New Insulin Pump 04/17/2025 Encounter Details Date Type Department Care Team (Late st Contact Info) Description 04/17/2025 Telephone [facility] Endo and Diabetes Consult [address] [address] Jumana Sullivan RN [email or web address] P-New Insulin Pump Social History Tobacco Use Types Packs/Day Years [...] as of this encounter Progress Notes * Dina Thomas - 04/24/2025 3:08 PM EDT PA request received for [employer]. PA submitted via [employer] and is pending. * Jumana Sullivan RN - 04/17/2025 11:46 AM EDT Spoke with Yakov after speaking with patient. [facility]. Spoke with Ida abarca who reached out and patient is scheduled for at 9am. * Jumana Sullivan RN - 04/17/2025 11:25 AM EDT VM received from patient requesting Tslim X2 pump Rx be sent to [facility]. Spoke with CDE's - pt has had missed appointment and has been off of iLet insulin pump for some time. RecommendedCDE visit to discuss pump details in full as the two pumps work very differently. Pt states the last time she was on an insulin pump she had received the pump, self taught and began using it before we could see her. She feels she can do the same with this pump. Discussed that the two pumps work very differently and an educator visit is preferred so that they can look at data and review education specific to the pump. Pt agreeable if this can be soon and telehealth. I will have a conversation with Kamryn and Malinda,and ask that one of them reach out to the patient. Please notify the front end technician if setting up an appointment will be sufficient. While on the phone pt let this senior medical writer know she was at [facility] trying to get refill of pen needlesas she has been reusing them. Told that her Rx is . Looks like this order is already pended to the provider. Pt updated of this. documented in this encounter Plan of Treatment Upcoming Encounters Date Type Department Care Team (Late st Contact Info) Description 07/24/2025 1:15 PM EST Office Visit [facility] Endo and Diabetes Consult [address] [address] Gladys Butcher MD [address] [id number] 09/11/2025 8:30 AM EDT Office Visit [facility] Internal Medicine [address] [address] Gilson Pabon MD [address] [address] 09/14/2025 9:45 AM EDT Nutrition [facility] Endo and Diabetes Consult [address] [address] Gladys Butcher MD [address] [phone] [email or web address] Kamryn Chew, RN [address] [place] [address] [email or web address] documented as of this encounter Goals Goal [...] as of this encounter Visit Diagnoses Diagnosis Type 1 diabetes mellitus with hyperglycemia documented in this encounter Additional Health Concerns Assessment Noted Time PHQ-9 Depression Total Score: 13 025 9:08 AM EST PHQ-2 Depression Total Score: 3 09/08/19 25 9:08 AM EST documented as of this encounter Care Teams Criminal Investigator Customs Relationship Specialty Start Date End Date Gilson Pabon MD [address] [address] [place] [address] [email or web address] PCP - General Internal Medicine 09/07/24 documented as of this encounter Additional Source Comments The information contained in this document represents components of the legal health record. It is not the complete legal health record.[facility]
--- OUTSIDE RECORDS SUMMARY | 2025-06-12 02:26 | XMS_ITS | Clinical Summary ---
Author Organization [facility]: [facility] Care Address [address] [place] [id number] Care Team Providers Care Pile Driving Technician Name Role Phone Marysol Luu MD Primary Care Provider [phone] Allergies No known active allergies Medications sertraline (ZOLOFT) 50 MG Oral TabIndications:Cyc lic vomiting syndrome,Anxiety,P anic attacks Take 1 Tab by mouth DAILY. 3 Active Multiple Vitamin (MULTIVITAMINS) Oral TabIndications:Cyc lic vomiting syndrome,Anxiety,P anic attacks Take 1 Tab by mouth TWICE A DAY. 3 Active cholecalciferol (VITAMIN D) 1000 UNITS Oral TabIndications:Cyc lic vomiting syndrome,Anxiety,P anic attacks Take 1 Tab by mouth TWICE A DAY. 3 Active omega-3 fatty acids (FISH OIL) 1000 MG Oral CapIndications:Cyc lic vomiting syndrome,Anxiety,P anic attacks Take 1 Cap by mouth TWICE A DAY. 3 Active peg electrolytes (MIRALAX) Oral PowderIndications: Cyclic vomiting syndrome,Anxiety,P anic attacks Take 17 g by mouth EVERY MORNING. 3 Active hydrOXYzine HCL (ATARAX) 25 MG Oral TabIndications:ADH D (attention deficit hyperactivity disorder),Abdomina l pain, other specified site,Generalized headaches Take 1-2 Tabs by mouth NEEDED (At bedtime). 3 Active amphetamine/dextro amphetamine (ADDERALL XR, 30MG,) 30 MG Oral CAPSULE SR 24 HRIndications:ADHD (attention deficit hyperactivity disorder),Abdomina l pain, other specified site,Generalized headaches Take 1 Cap by mouth EVERY MORNING. for ADHD. Swallow whole. Do not crush or chew. 30 Cap 0 3 amphetamine/dextro amphetamine (ADDERALL XR, 5MG,) 5 MG Oral CAPSULE SR 24 HRIndications:ADHD (attention deficit hyperactivity disorder),Abdomina l pain, other specified site,Generalized headaches Take 1 Cap by mouth EVERY AFTERNOON. for ADHD. Swallow whole. Do not crush or chew. 3 Active Problems Problem Noted Date Diagnosed Date Cyclic vomiting syndrome 03/22/2013 Constipation 03/22/2013 Anxiety 03/22/2013 ADHD (attention deficit hyperactivity disorder) 03/22/2013 Depression 03/22/2013 Family History Medical History Relation Comments GI Father GERD Migraines Mother during GI Sister GERD Psychiatry Sister Anxiety Allergies Negative FH Arthritis Negative FH Asthma Negative FH DERMATOLOGY PROBLEMS (OTHER) Negative FH Relation Status Comments Father Mother Sister Social History Tobacco Use Types Packs/Day Years Used Date Smoking Tobacco: Never Smokeless Tobacco: Never Comments:No smokers at home Alcohol Use Standard Drinks/Week Comments Not Asked 0 (1 standard drink = 0.6 oz pur e alcohol) Comments Unknown Sex and Gender Information Value Date Recorded Sex Assigned at Not on file Legal Sex Female 10:36 AM EDT Gender Identity Not on file Sexual Orientation Not on file Last Filed Vital Signs Vital Sign Reading Time Taken Comments Blood Pressure 104/68 12/14/2012 2:34 PM EDT Pulse 62 12/14/2012 2:34 PM EDT Temperature - - Respiratory Rate 18 12/14/2012 2:34 PM EDT Oxygen Saturation - - Inhaled Oxygen Concentration - - Weight 41 kg (90 lb 6.4 oz) 03/22/2013 2:15 PM E DT Height 152.9 cm (5' 0.2 ) 03/22/2013 2:15 PM EDT Body Mass Index 17.54 03/22/2013 2:15 PM EDT Plan of Treatment Health Maintenance Due Date Last Done Comments Varicella Vaccines (1 of 2 - 13+ 2-dose series) 2013 HIV Screening 12/28/2015 HPV Vaccines (1 - 3-dose series) 12/28/2015 Chlamydia Screening 2016 Hepatitis C Screening 2018 DTaP/Tdap/Td Vaccines (1 - Tdap) 12/28/2019 Hepatitis B Vaccines (1 of 3 - 19+ 3-dose series) 12/28/2019 Cervical Cancer Screening 2021 COVID-19 Vaccine (1 - 2023-2 5 season) 2025 Influenza Vaccine (#1) 2025 05/25/2024 HIB Vaccines Aged Out No longer eligi ble based on patient's age to complete this topic Hepatitis A Vaccines Aged Out No long er eligible based on patient's age to complete this topic IPV Vaccines Aged Out No longer eligi ble based on patient's age to complete this topic Meningococcal B (MenB) Vaccines Aged Out No longer eligible based on patient's age to complete this topic Meningococcal Vaccines Aged Out No lo nger eligible based on patient's age to complete this topic Pneumococcal Vaccine: Pediat rics (0-5 years) and At-Risk Patients (6-50 years) Aged Out No longer eligible b ased on patient's age to complete this topic Insurance [facility] HMO Care Teams Pile Driving Technician Relationship Specialty Start Date End Date Marysol Luu MD [address] [address] PCP - General Internal Medicine 03/24/24
--- OUTSIDE RECORDS SUMMARY | 2025-06-12 02:26 | XMS_ITS | Encounter Summary ---
Author Organization [facility]: [facility] Address [address] [facility] [address] [place] [address] Care Team Providers Care Commercial Parts Professional Name Role Phone Marysol Luu MD Primary Care Provider [phone] Encounter Details Date Type Department Care Team (Late st Contact Info) Description 03/24/2024 Notation [facility] [address] [facility] [address] [place] [address] Provider, Generic REFERRAL AND NOTES Social History Tobacco Use Types Packs/Day Years [...] on file Sexual Orientation Not on file documented as of this encounter Plan of Treatment Not on file documented as of this encounter Visit Diagnoses Not on filedocumented in this encounter Care Teams Commercial Parts Professional Relationship Specialty Start Date End Date Marysol Luu MD [address] [address] PCP - General Internal Medicine 03/24/24 documented as of this encounter
== END 2025-06-12 00:01 | disposition home or self-care (01) ==
PROVIDERS: Nurse Practitioner; Physician Assistant; Emergency Provider Emergency Medicine
DX: R10.11 Right upper quadrant pain (principal); E10.9 Type 1 diabetes mellitus without complications; Z87.440 Personal history of urinary (tract) infections; Z79.899 Other long term (current) drug therapy
CPT/HCPCS: 36415; 74177; 80053; 81001; 81003; 81025; 82010; 83690; 84484; 84702; 85025; 85610; 85730; 87637; 93005; 96361; 96374; 96375; 99285; J1885; J2405; Q9967

== ENCOUNTER → 2025-06-11 16:08 | Outpatient (BNV) | payer OTHER, SELFPAY | PROVIDERS: Emergency Provider Emergency Medicine; Visit Provider Internal Medicine Cardiovascular Disease | DX: R94.31 Abnormal electrocardiogram [ECG] [EKG] (principal); R10.9 Unspecified abdominal pain | CPT/HCPCS: 93010 ==

== ENCOUNTER → 2025-06-11 20:25 | Outpatient (BNV) | payer OTHER, SELFPAY | PROVIDERS: Visit Provider Radiology Diagnostic Radiology | DX: R10.9 Unspecified abdominal pain (principal) | CPT/HCPCS: 74177 ==